=== PATIENT | female | born 1980 | race Two or more races ===

== ENCOUNTER 2022-10-03 05:40 | Observation (INO) | payer OTHER ==
[2022-09-26 16:58] LABS: BASOPHILS # (AUTO) 0.1 X10'3 (0-0.2); BASOPHILS % (AUTO) 0.8 % (0-1); EOSINOPHILS # (AUTO) 0.1 X10'3 (0-0.9); EOSINOPHILS % (AUTO) 0.9 % (0-6); LYMPHOCYTES # (AUTO) 2.6 X10'3 (1.1-4.8); LYMPHOCYTES % (AUTO) 26.2 % (21-51); MEAN CORPUSCULAR HEMOGLOBIN 29.9 PG (27.0-31.0); MEAN CORPUSCULAR VOLUME 90.4 FL (78-98); MEAN PLATELET VOLUME 7.5 FL (7.4-10.4); MONOCYTES # (AUTO) 0.6 X10'3 (0-0.9); MONOCYTES % (AUTO) 5.8 % (2-12); NEUTROPHILS # (AUTO) 6.5 X10'3 (1.8-7.7); NEUTROPHILS % (AUTO) 66.3 % (42-75); PRE OP HEMATOCRIT 40.1 % (35.0-45.0); PRE OP HEMOGLOBIN 13.3 g/dL (12.0-16.0); PRE OP PLATELET COUNT 362 X10'3 (140-440); RED BLOOD COUNT 4.44 X10'6 (4.20-5.60); RED CELL DISTRIBUTION WIDTH 13.3 % (11.5-14.5)
[2022-09-26 17:07] LABS: CLARITY,URINE CLEAR (Clear); COLOR,URINE YELLOW (Yellow); GLUCOSE, URINE 500 mg/dl (Neg); KETONES,URINE NEGATIVE (Neg); LEUKOCYTE ESTERASE ,URINE NEGATIVE (Neg); NITRITES, URINE NEGATIVE (Neg); OCCULT BLOOD,URINE NEGATIVE (Neg); PROTEIN,URINE NEGATIVE (Neg); UROBILINOGEN,URINE 0.2 E.U/dL (0.2-1.0)
[2022-09-26 17:17] LABS: UA COLLECTION TYPE CLN CATCH MIDSTREAM
[2022-09-26 17:18] LABS: HCG SERUM QL NEGATIVE
[2022-09-26 17:26] LABS: ALBUMIN 4.2 G/DL (3.4-5.0); ALBUMIN/GLOBULIN RATIO 1.1 (1.1-1.5); ALKALINE PHOSPHATASE 65 IU/L (46-116); BLOOD UREA NITROGEN 17 MG/DL (7-18); BUN/CREATININE RATIO 19.1 (6.6-38.0); CALCIUM 9.2 MG/DL (8.5-10.1); CHLORIDE 99 MMOL/L (99-107); CREATININE 0.89 MG/DL (0.40-0.90); PRE OP ALT 22 U/L (30-65); PRE OP ANION GAP 8 (8-16); PRE OP AST 18 U/L (10-37); PRE OP BILIRUB, TOTAL 0.2 MG/DL (0.0-1.0); PRE OP GLUCOSE 196 MG/DL (70-104); PRE OP POTASSIUM 3.7 MMOL/L (3.4-5.1); PRE OP SODIUM 137 MMOL/L (135-145); TOTAL CARBON DIOXIDE 29.9 MMOL/L (24-32); TOTAL PROTEIN 8.2 G/DL (6.4-8.2); eGFR 69 ML/MIN
[2022-10-03] VITALS (14 sets, daily range): BP systolic 106–125; BP diastolic 58–81
[~2022-10-03] VITALS: Ht 152.4 cm; Wt 62.4 kg
[~2022-10-03 05:40] MED LIST: ALB0.5UD; FLAS1KIT3; GENTAMICIN IV ONE; INSU100C4 SQ; INSU100I29 SQ; NORMAL SALINE IV ONE; ROSU10TA28 PO; clindamycin-Cleocin 900mg/D5W 50 ML IV ONE; famotidine 20mg tablet PO ONE; ringers solution, lacted 1,000 ML IV SCH
[2022-10-03] MEDS ORDERED: vasoPRESSIN 20 units/ml inj. ONE (06:38)
[2022-10-03] MEDS ORDERED: BUPIVAcaine 0.5% inj/PF 60 ML ONE (06:38)
[2022-10-03] MEDS ORDERED: neomy sulf/polymyxin B sulf. GU irrigation 1ml amp IR ONE (06:39)
[2022-10-03] MEDS ORDERED: fentaNYL/PF 50MCG/1 ML 2ML syringe IV PRN ×2 (07:15)
[2022-10-03] MEDS ORDERED: ondansetron/PF 4mg/2ml inj IV PRN ×3 (07:15→09:50)
[2022-10-03] MEDS ORDERED: ringers solution, lacted 1,000 ML IV SCH (07:15)
[2022-10-03] MEDS ORDERED: morphine 4 MG/ML inj SYRINge IV PRN (07:15)
[2022-10-03] MEDS ORDERED: hydrALAZINE 20mg/ml inj. IV PRN (07:15)
[2022-10-03] MEDS ORDERED: morphine 2 MG/ML inj. syringe IV PRN (07:15)
[2022-10-03] MEDS ORDERED: labetalol 20mg/4ml (5mg/ml) syringe IV PRN (07:15)
[2022-10-03] MEDS ORDERED: fentaNYL/PF 50MCG/1 ML 2ML syringe ONE ×2 (07:19→08:49)
[2022-10-03] MEDS ORDERED: midazolam 1 mg/ML 2ml injection ONE (07:20)
[2022-10-03] MEDS ORDERED: ondansetron/PF 4mg/2ml inj ONE (07:22)
[2022-10-03] MEDS ORDERED: propofol inj 20 ML IV ONE (07:22)
[2022-10-03] MEDS ORDERED: rocuronium 10mg/ml inj IV ONE ×2 (07:22→08:48)
[2022-10-03] MEDS ORDERED: LIDOcaine 1%/PF 5ML 10 MG/ML VIAL ONE (07:22)
[2022-10-03] MEDS ORDERED: glycopyrrolate 0.2mg/ml inj ONE (07:22)
[2022-10-03] MEDS ORDERED: neostigmine methylsulfate 1 MG/ML 10ml vial ONE (07:22)
[2022-10-03] MEDS ORDERED: dexamethasone sod phosphate 4mg/ml inj. ONE (07:23)
[2022-10-03] MEDS ORDERED: sevoflurane 250ml liquid IH ONE (07:28)
[2022-10-03] MEDS ORDERED: BUPIVAcaine 0.5% inj/PF 30 ml vial IJ ONE (08:29)
[2022-10-03] MEDS ORDERED: dextrose 5%-lactated ringers 1,000 ML IV SCH ×2 (09:50)
[2022-10-03] MEDS ORDERED: HYDROcodone/acetaminophen 5mg/325mg tablet PO PRN ×4 (09:50)
[2022-10-03] MEDS ORDERED: ibuprofen 200mg tablet PO PRN (09:50)
[2022-10-03] MEDS ORDERED: ketorolac trometh. 30mg/ml inj. IV ONE (09:50)
--- NOTE | 2022-10-03 10:04 | NUR ---
Received from OR via [facility]OSPITAL BED, accompanied by Anesthesiologist DR CUELLAR and report given by Anesthesiolgist. PT PRESNTS WITH PIV 20G LEFT HAND, 3 LAP SITES WITH DERMABOND AND JOE PAD, CDI. VSS. PT BG 184 WITH PT OWN BLOOD GLUCOSE MONITOR. Addendum: 10/03/22 at 1016 by Joanna Leo RN, RN Amended: Links added.
--- NOTE | 2022-10-03 11:22 | NUR ---
ONEAL CATHETER REMOVED.
--- NOTE | 2022-10-03 12:04 | NUR ---
Report called to receiving nurse ANUJ SOW[facility] MAGI ROJAS TOOK PT TO FLOOR. Belongings 1 PT BAG SENT TO ROOM WITH PT. Special Issues communicated to receiving nurse. Addendum: 10/03/22 at 1212 by Joanna Leo RN RN Amended: Links added.
--- NOTE | 2022-10-03 12:05 | NUR ---
Patient in room [facility]. I have received report from Joanna SWO recovery and had the opportunity to ask questions and assume patient care.
--- NOTE | 2022-10-03 12:10 | NUR ---
Pt arrived on the floor., A & O x4, sleepy tired and wants to go home. no bleeding, BS (+), zavaleta removed at 1120, no urination yet.
--- NOTE | 2022-10-03 17:06 | NUR ---
Pt has been discharged home with all care packets and care instructions postop appointment in 2 weeks. pt was taken to lobby via a wheel chair by primary nurse Sonja LOCKWOOD and safely entered car.
== END 2022-10-03 16:59 | disposition home or self-care (01) ==
LOC: PAS 05:40 → UNDOADMIN 09:54 → SUR 3N 09:54
PROVIDERS: ADMIT Obstetrics & Gynecology Obstetrics; ATTEND Obstetrics & Gynecology Obstetrics
DX: D25.9 Leiomyoma of uterus, unspecified (principal); D06.9 Carcinoma in situ of cervix, unspecified; J45.909 Unspecified asthma, uncomplicated; E11.9 Type 2 diabetes mellitus without complications; G43.909 Migraine, unspecified, not intractable, without status migrainosus; Z79.899 Other long term (current) drug therapy
CPT/HCPCS: 36415; 58552; 71046; 80053; 81003; 82948; 84703; 85025; 86885; 86900; 86901; 93005; 96365; 96375; G0378; J1100; J1580; J1885; J2250; J2270; J2405; J2704; J2710; J3010; J3490; J7120; S0020; A4314; A4615; A4618; A7000